=== PATIENT | female | born 1990 | race Caucasian/White ===

== ENCOUNTER 2019-03-26 05:17 | Inpatient (IN) | payer MEDICAID ==
[~2019-03-26] VITALS: Ht 162.7 cm; Wt 90.5 kg
[2019-03-26] VITALS (19 sets, daily range): BP systolic 99–127; BP diastolic 56–94; PULSE 77–100; TEMP 97–98.4
--- NOTE | 2019-03-26 06:20 | NUR ---
0620-Recieved report from JJ Pelaez. patient resting in bed with spouse at bedside. Reactive strip reviewed with JJ Pelaez. IVF per orders to left forearm IV. Assessment complete. 07-Ambulatory with spouse to OR. Assisted onto OR table. LIZ Croft reported to.
[2019-03-26] MEDS ORDERED: PRENATAL (06:34)
[2019-03-26] MEDS ORDERED: GLUCOPHAGE1000 MG PO (06:34)
[2019-03-26 06:36] LABS: BASO % 0.4 % (0.0-2.0); EOS # 0.1 (0.0-0.7); EOS % 0.8 % (0-4.0); GRAN # 5.7 (1.4-6.5); LYMPH # 1.9 (1.2-3.4); LYMPH % 22.9 % (20.0-51.0); MEAN CELL VOLUME 76 fl (80.0-100.0); MEAN CORPUSCULAR HGB CONC 31 g/dl (33.0-37.0); MEAN PLATELET VOLUME 12.2 fl (7.4-10.4); MONO # 0.6 (0.1-0.6); MONO % 7.3 % (1.7-9.3); PLATELET COUNT 240 K/mm3 (130-400); RED BLOOD COUNT 4.18 M/mm3 (4.10-5.30); REDCELL DISTRIBUTION WIDTH-CV 15.9 % (11.5-14.5)
[2019-03-26 06:56] LABS: HEMATOCRIT 31.9 % (37.0-47.0); HEMOGLOBIN 9.9 g/dl (12.5-16.0); MEAN CORPUSCULAR HEMOGLOBIN 24 pg (27.0-31.0)
--- NOTE | 2019-03-26 08:25 | NUR ---
0825-Patient to PACU via bed. Recieved report from LIZ Croft. Patient A&O x4. Patient without complaints of pain. VSS,see flow record. Abdomen with binder in place. Dressing to abdomen C/D/I. Fundal massage firm, Lochia WNL. Iverson to DD, clear yellow urine. Updated on plan of care.
--- NOTE | 2019-03-26 09:00 | NUR ---
0900-Patient to room 221 via bed. Patient denies pain, VSS, see flow record. Updated on plan of care and safety. Fundal massage firm. Pretty LUCAS. SCD's to BLE.
[2019-03-26 10:17] LABS: HEMATOCRIT 31.9 % (37.0-47.0); HEMOGLOBIN 9.7 g/dl (12.5-16.0)
[2019-03-27 01:20] VITALS: BP 105/67; PULSE 73
[2019-03-27 05:10] VITALS: BP 110/65; PULSE 84; TEMP 97.8
[2019-03-27] MEDS ORDERED: PERCOCET 325 MG1 TA2 PO (08:44)
[2019-03-27] MEDS ORDERED: IBU600 MG PO (08:44)
[2019-03-27 09:00] VITALS: BP 118/68; PULSE 90; TEMP 98.7
[2019-03-27 16:00] VITALS: BP 125/73; PULSE 88
[2019-03-27 20:35] VITALS: BP 116/76; PULSE 90; TEMP 98.1
[2019-03-28 07:20] VITALS: BP 114/68; PULSE 76; TEMP 97.8
== END 2019-03-28 11:41 | disposition home or self-care (01) | DRG 786 ==
LOC: OB 05:17 → LDR 08:18 → OB 03-28 11:41
PROVIDERS: ADMIT Obstetrics & Gynecology
PROC: 10D00Z1 Extraction of Products of Conception, Low, Open Approach (ICD-10-PCS; principal; 2019-03-26)
DX: O34.211 Maternal care for low transverse scar from previous cesarean delivery (principal); O24.12 Pre-existing type 2 diabetes mellitus, in childbirth; Z3A.39 39 weeks gestation of pregnancy; Z37.0 Single live birth; E11.9 Type 2 diabetes mellitus without complications; O99.284 Endocrine, nutritional and metabolic diseases complicating childbirth; Z79.84 Long term (current) use of oral hypoglycemic drugs
CPT/HCPCS: J0690; J1885; J2175; J2370; J2405; J2590; J3010; J7120